=== PATIENT | male | born 1990 | race Caucasian/White ===

== ENCOUNTER 2021-01-25 10:28 | Emergency (ER) | payer OTHER ==
[2021-01-25 12:01] LABS: RAPID STREP SCREEN Negative (Negative)
--- NOTE | 2021-01-25 12:07 | ED Physician Documentation ---
PD HPI URI - Stated complaint Stated Complaint: COUGH,RUNNY NOSE - Chief complaint Chief Complaint: Heent - History obtained from History obtained from: Patient - History of Present Illness Timing - onset: Other (3) Timing duration: Days (3) Timing details: Gradual onset Pain level max: 0 Pain level now: 0 Associated symptoms: Nasal congestion, Rhinorrhea, Sore throat, Dry cough. No: Fever, Chills Contributing factors: No: Travel, Immunocompromised, Unimmunized, COPD / asthma - Additional information Additional information: 30-year-old male who brought his 2 sons in the emergency department with him. They have all been sick for the past 3 days with rhinorrhea, cough and congestion. No fevers. No Covid exposure. Nothing makes it better or worse. Minimal dry cough. Mild sore throat. Review of Systems Constitutional: denies: Fever, Chills Nose: reports: Rhinorrhea / runny nose, Congestion Respiratory: denies: Cough GI: denies: Abdominal Pain, Nausea, Diarrhea Skin: denies: Rash Musculoskeletal: denies: Neck pain, Back pain Neurologic: denies: Headache PD PAST MEDICAL HISTORY - Past Medical History Past Medical History: No - Past Surgical History Past Surgical History: No - Present Medications Home Medications: Ambulatory Orders Medication Instructions Recorded Confirmed No Known Home Medications 01/25/21 01/25/21 - Allergies Allergies/Adverse Reactions: Allergies Allergy/AdvReac Type Severity Reaction Status Date / Time No Known Drug Allergies Allergy Verified 01/25/21 10:54 - Social History Does the pt smoke?: No Smoking Status: Never smoker Does the pt drink ETOH?: No Does the pt have substance abuse?: No - Immunizations Immunizations are current?: No PD ED PE NORMAL - Vitals Vital signs reviewed: Yes - General General: Alert and oriented X 3, No acute distress, Well developed/nourished - HEENT HEENT: PERRL, Moist mucous membranes, Pharynx benign, Other (Posterior oropharyngeal erythema without tonsillar exudates.) - Neck Neck: Supple, no meningeal sign, No JVD, No bruit - Cardiac Cardiac: RRR, Strong equal pulses - Respiratory Respiratory: No respiratory distress, Clear bilaterally - Abdomen Abdomen: Soft, Non tender, Non distended - Derm Derm: Warm and dry, No rash - Extremities Extremities: No edema - Neuro Neuro: Alert and oriented X 3 - Psych Psych: Normal mood, Normal affect Results - Vitals Vitals: Vital Signs - 24 hr 01/25/21 10:51 Temperature 36.8 C Heart Rate 72 Respiratory 16 Rate Blood Pressure 112/73 O2 Saturation 99 Oxygen O2 Source Room air - Labs Labs: Laboratory Tests 01/25/21 11:34 Group A Strep Rapid Negative PD MEDICAL DECISION MAKING - ED course Complexity details: considered differential, d/w patient ED course: Patient is well-appearing, nontoxic. Afebrile. Appears to have a viral upper respiratory infection. Covid testing was sent. Rapid strep is negative. We will continue supportive care and follow-up with his doctor as needed for further care. Patient counseled regarding signs and symptoms for which I believe and urgent re-evaluation would be necessary. Patient with good understanding of and agreement to plan and is comfortable going home at this time This document was made in part using voice recognition software. While efforts are made to proofread this document, sound alike and grammatical errors may occur. Departure - Departure Disposition: 01 Home, Self Care Clinical Impression: Viral syndrome Condition: Good Instructions: ED Viral Syndrome Follow-Up: MIRANDA COLÓN MD [Primary Care Provider] - As Needed Comments: Your rapid strep test is negative. Your Covid test should return tomorrow or the next day. Drink plenty of fluids, rest. Decongestants and cough medication may help as well. We will call with a positive result, the fastest way to get a negative result for confirmation though is to go to the hospital website at [email or web address], click on the my [facility] tab and sign up for the patient portal. If any of your friends and/or family need to be tested, they can call the [facility] at [phone] for an appointment to have their Covid test.
[2021-01-25 12:33] VITALS: BP 114/78
== END 2021-01-25 12:20 | disposition home or self-care (01) ==
LOC: ED 10:28
DX: B34.9 Viral infection, unspecified (principal); Z20.822 Contact with and (suspected) exposure to COVID-19
CPT/HCPCS: 87070; 87430; 99282; 99283